=== PATIENT | female | born 1960 | race Caucasian/White ===

== ENCOUNTER 2022-05-12 10:55 | Outpatient (CLI) | payer BC, SELFPAY | END 2022-05-12 10:56 | disposition home or self-care (01) | LOC: FBOREF 05-15 11:00 | PROVIDERS: PCP Family Medicine; Visit Provider Family Medicine | DX: M54.9 Dorsalgia, unspecified (principal); E78.5 Hyperlipidemia, unspecified | CPT/HCPCS: 87086 ==

== ENCOUNTER 2023-04-12 09:19 | Outpatient (CLI) | payer BC, SELFPAY | END 2023-04-12 09:20 | disposition home or self-care (01) | PROVIDERS: PCP Family Medicine; Visit Provider Family Medicine | DX: I10 Essential (primary) hypertension (principal); E78.5 Hyperlipidemia, unspecified; R73.09 Other abnormal glucose | CPT/HCPCS: 80048; 80061; 85025 ==

== ENCOUNTER 2024-08-14 15:08 | Outpatient (CLI) | payer BC, SELFPAY | END 2024-08-14 15:09 | disposition home or self-care (01) | PROVIDERS: PCP Family Medicine; Visit Provider Family Medicine | DX: I10 Essential (primary) hypertension (principal); E78.2 Mixed hyperlipidemia | CPT/HCPCS: 80048; 80061 ==

== ENCOUNTER 2025-02-19 16:51 | Outpatient (CLI) | payer OTHER, SELFPAY | END 2025-02-19 16:52 | disposition home or self-care (01) | PROVIDERS: PCP Family Medicine; Visit Provider Family Medicine | DX: E78.2 Mixed hyperlipidemia (principal); I10 Essential (primary) hypertension; R73.03 Prediabetes | CPT/HCPCS: 80048; 80061; 84460 ==